=== PATIENT | female | born 1940 | race Caucasian/White ===

== ENCOUNTER 2016-12-06 13:05 | Outpatient (CLI) | payer BC | END 2016-12-06 23:59 | disposition home or self-care (01) | LOC: WOU 13:05 | PROVIDERS: ATTEND Podiatrist Foot & Ankle Surgery | DX: M21.372 Foot drop, left foot (principal); B35.1 Tinea unguium; M21.542 Acquired clubfoot, left foot; I69.954 Hemiplegia and hemiparesis following unspecified cerebrovascular disease affecting left non-dominant side; Z96.649 Presence of unspecified artificial hip joint; B35.3 Tinea pedis; Z99.3 Dependence on wheelchair; G62.9 Polyneuropathy, unspecified | CPT/HCPCS: G0463 ==

== ENCOUNTER 2019-07-01 16:25 | Inpatient (IN) | payer BC, MEDICARE ==
[~2019-07-01] VITALS: Ht 160 cm; Wt 90.3 kg
--- NOTE | 2019-07-01 16:26 | NUR ---
PT BIB [facility] 89 FROM HOME,WEAK, UNABLE TO GET UP WITH HELP FROM CAREGIVER,TOLD EMS THAT SHE COULD NOT EXPRESS HERSELF THIS MORNING. PT AAOX4, STRONG BILATERAL SUPERVISOR ASSEMBLING, ABLE TO FOLLOW COMMANDS, NO FACIAL DROOPING NOTED. PT CONNECTED TO THE MONITOR AND PX
[2019-07-01 17:29] LABS: BASOPHILS # (AUTO) 0.1 /CMM (0.0-0.2); BASOPHILS % (AUTO) 1.1 % (0.0-2.0); EOSINOPHILS % (AUTO) 0.4 % (0.0-6.0); HEMATOCRIT 32 % (33-45); HEMOGLOBIN 10.3 g/dL (11.5-14.8); LYMPHOCYTES # (AUTO) 0.4 /CMM (0.8-4.8); LYMPHOCYTES % (AUTO) 4.7 % (20.0-44.0); MEAN CORPUSCULAR HGB CONC 33 g/dl (31.0-36.0); MEAN CORPUSCULAR VOLUME 82 fL (82-100); MONOCYTES # (AUTO) 0.7 /CMM (0.1-1.30); MONOCYTES % (AUTO) 7.9 % (2.0-12.0); NEUTROPHILS # (AUTO) 7.6 /CMM (1.8-8.9); NEUTROPHILS % (AUTO) 85.9 % (43.0-81.0); PLATELET COUNT (AUTO) 324 /CMM (150-450); RED BLOOD CELL COUNT(AUTO) 3.86 MIL/uL (4.0-5.2); WHITE BLOOD COUNT (AUTO) 8.8 K/uL (4.3-11.0)
[2019-07-01] MEDS ORDERED: IV NS 0.9% 500 ML BAG IV ONE (17:30)
--- NOTE | 2019-07-01 17:30 | NUR ---
BLOOD DRAWN AND SENT TO LAB
--- NOTE | 2019-07-01 17:35 | NUR ---
XRAY AT BEDSIDE
[2019-07-01 17:38] LABS: CALCIUM, SERUM 9.1 mg/dL (8.5-10.1); CREATININE 0.9 mg/dL (0.6-1.3); POTASSIUM 4.3 mmol/L (3.5-5.1)
--- NOTE | 2019-07-01 17:43 | NUR ---
PT TAKEN TO CT
[2019-07-01 17:44] LABS: ALBUMIN 2.9 g/dL (3.4-5.0); BILIRUBIN,TOTAL 0.4 mg/dL (0.2-1.0)
--- NOTE | 2019-07-01 17:45 | NUR ---
Sharon mathis in [facility] - 07/01/19 at 1754 by EDWINA XRAY AT BEDSIDE
[2019-07-01 17:49] LABS: APPEARANCE,URINE Clear (CLEAR); BILIRUBIN,URINE Negative (NEGATIVE); BLOOD, URINE Large Ery/uL (NEGATIVE); COLOR,URINE Yellow (YELLOW); KETONES,URINE 15 (NEGATIVE); LEUKOCYTE ESTERASE ,URINE Negative (NEGATIVE); NITRITE, URINE Negative (NEGATIVE); PROTEIN,URINE 30 mg/dl (NEGATIVE); UGLUCOSE Negative (NEGATIVE); UROBILINOGEN,URINE 0.2 EU/dL (0.2)
[2019-07-01 17:53] LABS: RBC,URINE 21-50 /HPF (0-2)
--- NOTE | 2019-07-01 17:53 | NUR ---
PT BACK FROM CT
[2019-07-01 17:54] LABS: BACTERIA,URINE Few /HPF (None Seen); SQUAMOUS EPITHELIAL CELL,UR Few /HPF (None Seen); WBC,URINE 0-2 /HPF (0-3)
[2019-07-01] MEDS ORDERED: FLUO30CR11 TP (18:41)
[2019-07-01] MEDS ORDERED: OLME40TA18 PO (18:41)
[2019-07-01] MEDS ORDERED: MUPI22OI7 MC (18:41)
[2019-07-01] MEDS ORDERED: POTA10CA43 PO (18:41)
[2019-07-01] MEDS ORDERED: FURO20TA4 PO (18:41)
--- NOTE | 2019-07-01 18:49 | NUR ---
CALLED NURSING SUP FOR BED
[2019-07-01] MEDS ORDERED: VANCOMYCIN 1 GM VIAL ONE (18:59)
[2019-07-01] MEDS ORDERED: VANCOMYCIN 1 GM in IV D5W 250 ML IV ONE (19:00)
[2019-07-01] MEDS ORDERED: ACETAMINOPHEN 325 MG TABLET PO PRN (20:00)
[2019-07-01] MEDS ORDERED: FEE PK DOSING 1 MIN EA MC ONE (20:40)
[2019-07-01] MEDS ORDERED: hydrALAZINE HCL IV 20 MG VIAL ONE (20:58)
[2019-07-01] MEDS ORDERED: hydrALAZINE HCL IV 20 MG VIAL IV PRN (21:00)
[2019-07-01 21:28] VITALS: BP 138/66
--- NOTE | 2019-07-01 21:33 | NUR ---
PT TRANSFERRED IN STABLE CONDITION REPORT GIVEN TO EMERY DUGAN
--- NOTE | 2019-07-01 21:35 | NUR ---
TELE/RN ADMITTING NOTES: RECEIVED REPORT FROM [facility] ED RN. PATIENT ARRIVED TO THE UNIT AT 2127 IN STABLE CONDITION VIA GURNEY, ACCOMPANIED BY ER STAFF UNDER ACLS PROTOCOL. CAREGIVER VILLA PRESENT AT BED SIDE. PATIENT IS A/OX4, VERBALLY RESPONSIVE AND ABLE TO MAKE NEEDS KNOWN. NO SOB NOTTED, NO S/S OF DISTRESS. NO COMPLAINS OF PAIN AT THIS TIME. ORIENTED TO STAFF AND UNIT. VITAL SIGNS TAKEN, WNL. BELONGINGS LIST CHECKED. ON TELE MONITORING WITH READING OF SR WITH HR ON THE 80S. IV SITE PRESENT ON THE LEFT AC #18G AMD RIGHT WRIST #20G. SKIN ASSESSMENT DONE; BRUISES ON THE RIGHT AND LEFT TRICEPS PRESENT; BRUISES ON THE UNDERARM AND LEFT GLUTEAL PRESENT; BUMP PRESENT ON THE LEFT GLUTEAL REGION; CELLULITIS PRESENT ON THE RIGHT AND LEFT LOWER EXTREMITIES. PHOTOS TAKEN AND DOCUMENTED ON THE CHART. SAFETY MEASURES INITIATED. BED IS IN LOW, LOCKED POSITION AND SR UP X2. ALL PATIENT NEEDS AND CONCERNS ATTENDED AT THIS TIME. WILL CONTINUE MONITORING PT ACCORDINGLY.
[2019-07-01 22:00] VITALS: BP 128/70
[2019-07-01] MEDS ORDERED: LEVOFLOXACIN 500 MG /D5W 100ML 100 ML IV ONE (22:02)
[2019-07-01] MEDS: ATORVASTATIN 40 MG TABLET PO SCH (22:26)
[2019-07-01] MEDS: LEVOFLOXACIN 500 MG /D5W 100ML 500 MG in PREMIX 1 EA IV SCH (22:26)
[2019-07-01] MEDS: FUROSEMIDE 20 MG/2 ML VIAL IV SCH (22:26)
[2019-07-02] VITALS: BP 125/65
[2019-07-02 04:00] VITALS: BP 130/62
--- NOTE | 2019-07-02 06:36 | NUR ---
TELE/RN CLOSING NOTES: PATIENT IS IN STABLE CONDITION. RESTING IN BED COMFORTABLY. REMAINS A/OX4. VERBALLY RESPONSIVE AND ABLE TO MAKE NEEDS KNOWN. ALL DUE MEDS GIVEN ORDERED. ALL NEEDS ATTENDED AND MET. IV ACCESS ON THE LEFT AC #18G INTACT AND PATENT. ON ROOM AIR, NO SOB NOTED, NO S/S OF ACUTE DISTRESS. NO COMPLAINS OF PAIN AT THIS TIME. TELE MONITORING WITH READING OF SR HR ON THE 90S. SAFETY MEASURES KEPT IN PLACE. BED IN LOW, LOCKED POSITION WITH SR UP X2. KEPT PT CLEAN AND DRY AT ALL TIMES. KEPT PT WARM AND COMFORTABLE THROUGHOUT THE SHIFT. WILL ENDORSE TO DAY SHIFT NURSE FOR BLANCA.
[2019-07-02 07:16] LABS: BASOPHILS # (AUTO) 0.1 /CMM (0.0-0.2); EOSINOPHILS % (AUTO) 0.3 % (0.0-6.0); HEMATOCRIT 27 % (33-45); HEMOGLOBIN 8.9 g/dL (11.5-14.8); LYMPHOCYTES # (AUTO) 0.6 /CMM (0.8-4.8); LYMPHOCYTES % (AUTO) 8.4 % (20.0-44.0); MEAN CORPUSCULAR HGB CONC 33 g/dl (31.0-36.0); MEAN CORPUSCULAR VOLUME 81 fL (82-100); MONOCYTES # (AUTO) 1.1 /CMM (0.1-1.30); MONOCYTES % (AUTO) 16.1 % (2.0-12.0); NEUTROPHILS # (AUTO) 4.9 /CMM (1.8-8.9); NEUTROPHILS % (AUTO) 74.2 % (43.0-81.0); PLATELET COUNT (AUTO) 283 /CMM (150-450); RED BLOOD CELL COUNT(AUTO) 3.39 MIL/uL (4.0-5.2); WHITE BLOOD COUNT (AUTO) 6.6 K/uL (4.3-11.0)
[2019-07-02 07:46] LABS: ALBUMIN 2.5 g/dL (3.4-5.0); BILIRUBIN,TOTAL 0.4 mg/dL (0.2-1.0); CALCIUM, SERUM 8.7 mg/dL (8.5-10.1); POTASSIUM 3.1 mmol/L (3.5-5.1)
[2019-07-02 07:52] LABS: THYROID STIMULATING HORMONE 1.229 uIU/mL (0.358-3.74)
[2019-07-02 08:00] VITALS: BP 137/60
--- NOTE | 2019-07-02 08:15 | NUR ---
ms rn received on bed, awake,alert,oriented x 4,not in any form of distress, respirations even and unlabored,no sob noted,denies pain at this time,all needs attended..
--- NOTE | 2019-07-02 09:19 | NUR ---
WOUND CARE CONSULT: PT PRESENTS WITH AREAS OF BRUISING/DISCOLORATION AND BILATERAL LOWER LEG REDNESS, EDEMA AND CRUSTED AREAS WITH MILD ODOR, NO DRAINAGE, PRESENT ON ADMISSION. RECOMMEND DPM CONSULT. DR DIANE ARITA CALLED AND LEFT. DISCUSSED SKIN PROTECTION WITH NURSING STAFF. PT IS INCONTINENT. WILL SEE PRN. Addendum: 07/02/19 at 09 by SRINI OROZCOU Amended: Links added. Addendum: 07/02/19 at 0929 by SRINI OROZCOU DPM CONSULT MADE PER DR ARITA. DR FISHER NOTIFIED OF DPM CONSULT REQUEST.
[2019-07-02] MEDS ORDERED: Z GUARD REMEDY 2 OZ OINT TP PRN (09:30)
--- NOTE | 2019-07-02 09:30 | NUR ---
ms rn due meds given,tolerated well.
[2019-07-02] MEDS: ASPIRIN 81 MG TAB.CHEW PO SCH (09:45)
[2019-07-02] MEDS: FUROSEMIDE 20 MG/2 ML VIAL IV SCH (09:45)
[2019-07-02] MEDS: PANTOPRAZOLE 40 MG TABLET.DR PO SCH (09:45)
[2019-07-02] MEDS: VANCOMYCIN 1 GM in IV D5W 250ml IV SCH ×2 (09:45→20:07)
[2019-07-02] MEDS: ENOXAPARIN SODIUM 40 MG/0.4 ML DISP.SYRIN SQ SCH (09:47)
[2019-07-02 10:26] LABS: BAND % (MANUAL) 1 % (0.0-5.0); NEUTROPHILS % (MANUAL) 78 (42-76)
[2019-07-02 10:27] LABS: LYMPHOCYTES % (MANUAL) 9 % (16-48); MONOCYTES % (MANUAL) 12 % (0-11.0)
[2019-07-02] MEDS: ENSURE ENLIVE CHOC 237 ML CAN PO SCH ×2 (10:30→17:00)
--- NOTE | 2019-07-02 11:00 | NUR ---
ms rn went down for mri.
--- NOTE | 2019-07-02 11:00 | NUR ---
ms rn came back , patient cannot tolerate mri, will do it again this pm.
[2019-07-02] MEDS: MULTIVITAMINS,THERAGRAN 1 UDTAB TABLET PO SCH (11:03)
[2019-07-02] MEDS: ASCORBIC ACID 500 MG TABLET PO SCH (11:03)
[2019-07-02] MEDS: ZINC SULFATE 220 MG CAPSULE PO SCH (11:03)
[2019-07-02] MEDS: POTASSIUM CHLORIDE 20 MEQ TAB.PRT.SR PO SCH ×2 (11:03→17:50)
--- NOTE | 2019-07-02 14:19 | NUR ---
Social service consult requested by Dr. Pabon for stroke protocol. Per chart review and MD notes, The patient is a 79-year-old female who is disabled and walks with a walker. Pt has history of severe osteoarthritis, and hypertension. UNDERCOATER met with pt bedside. Pt is alert and oriented x 4. Pt is pleasant and cooperative with UNDERCOATER during the assessment. Pt reports, she lives alone. Pt is single and has no children. Pt does not have an Advance Directive at this time. Pt's emergency contact is her friend Rosi Carranza . Pt reported, she has three different caregivers on different days. Per pt. the caregivers provide up to 3 to 4 hrs per day of care. Pt uses a walker to ambulate. Pt stated, she had trouble sleeping last night due to her roommate coughing for most part of the night. Pt reports to have a poor appetite due to feeling nauseous. Pt denies feeling depressed or anxious at this time. Pt denies current suicidal and homicidal ideations and visual/auditory hallucinations. UNDERCOATER provided active listening and supportive counseling to the pt. UNDERCOATER is available, if needed. Addendum: 07/02/19 at 1428 by JULITO TRUJILLO PHQ-9 assessment completed by SINGH.
--- NOTE | 2019-07-02 15:00 | NUR ---
ms rn loom technician came to bring pt to mri, but patient refused,will do it in am, charge nurse aware.
[2019-07-02] MEDS: ONDANSETRON HCL/PF 4 MG/2 ML VIAL IV PRN (15:35)
[2019-07-02] MEDS: Z GUARD REMEDY 2 OZ OINT TP SCH (15:42)
[2019-07-02 16:00] VITALS: BP 130/70
[2019-07-02] MEDS: MUPIROCIN OINT 2% 22 GM TUBE TP SCH (17:49)
--- NOTE | 2019-07-02 18:44 | NUR ---
ms rn on bed, dressing done on bilateral legs, all needs attended,no distress noted.
--- NOTE | 2019-07-02 19:37 | NUR ---
TELE/RN OPENING NOTES: PATIENT IN STABLE CONDITION, A/OX4, VERBALLY RESPONSIVE AND ABLE TO MAKE NEEDS KNOWN. CAREGIVER VILLA, AT BEDSIDE. NO SOB NOTED, NO S/S OF DISTRESS. NO COMPLAINS OF PAIN AT THIS TIME. IV SITE PRESENT ON THE LEFT FOREARM; SKIN ASSESSMENT DONE; BRUISES ON THE RIGHT AND LEFT TRICEPS PRESENT; BRUISES ON THE UNDERARM AND LEFT GLUTEAL PRESENT; BUMP PRESENT ON THE LEFT GLUTEAL REGION; CELLULITIS PRESENT ON THE RIGHT AND LEFT LOWER EXTREMITIES. SAFETY MEASURES INITIATED. BED IS IN LOW, LOCKED POSITION AND SR UP X2. ALL PATIENT NEEDS AND CONCERNS ATTENDED AT THIS TIME. WILL CONTINUE MONITORING PT ACCORDINGLY.
[2019-07-02 20:00] VITALS: BP 144/74
[2019-07-02 21:00] VITALS: BP 144/74
[2019-07-02] MEDS: LEVOFLOXACIN 500 MG /D5W 100ML 500 MG in PREMIX 1 EA IV SCH (21:21)
[2019-07-02] MEDS: ATORVASTATIN 40 MG TABLET PO SCH (21:23)
[2019-07-03] MEDS: MUPIROCIN OINT 2% 22 GM TUBE TP SCH ×2 (04:15→17:41)
--- NOTE | 2019-07-03 06:17 | NUR ---
MS/RN CLOSING NOTES: PATIENT IS RESTING IN BED COMFORTABLY. REMAINS A/OX4. VERBALLY RESPONSIVE AND ABLE TO MAKE NEEDS KNOWN. ALL DUE MEDS GIVEN ORDERED. ALL NEEDS ATTENDED AND MET. IV ACCESS ON THE LEFT FOREARM #22G INTACT AND PATENT. ON ROOM AIR, NO SOB NOTED, NO S/S OF ACUTE DISTRESS. NO COMPLAINS OF PAIN AT THIS TIME. SAFETY MEASURES KEPT IN PLACE. BED IN LOW, LOCKED POSITION WITH SR UP X2. KEPT PT CLEAN AND DRY AT ALL TIMES. KEPT PT WARM AND COMFORTABLE THROUGHOUT THE SHIFT. WILL ENDORSE TO DAY SHIFT NURSE FOR BLANCA.
[2019-07-03 06:42] LABS: CALCIUM, SERUM 8.5 mg/dL (8.5-10.1); POTASSIUM 3.3 mmol/L (3.5-5.1)
[2019-07-03 06:44] LABS: BASOPHILS # (AUTO) 0.1 /CMM (0.0-0.2); BASOPHILS % (AUTO) 1.3 % (0.0-2.0); EOSINOPHILS % (AUTO) 0.5 % (0.0-6.0); HEMATOCRIT 29 % (33-45); HEMOGLOBIN 9.6 g/dL (11.5-14.8); LYMPHOCYTES # (AUTO) 0.4 /CMM (0.8-4.8); LYMPHOCYTES % (AUTO) 6.9 % (20.0-44.0); MEAN CORPUSCULAR HGB CONC 33 g/dl (31.0-36.0); MEAN CORPUSCULAR VOLUME 81 fL (82-100); MONOCYTES # (AUTO) 0.8 /CMM (0.1-1.30); MONOCYTES % (AUTO) 14.1 % (2.0-12.0); NEUTROPHILS # (AUTO) 4.4 /CMM (1.8-8.9); NEUTROPHILS % (AUTO) 77.2 % (43.0-81.0); PLATELET COUNT (AUTO) 288 /CMM (150-450); RED BLOOD CELL COUNT(AUTO) 3.57 MIL/uL (4.0-5.2); WHITE BLOOD COUNT (AUTO) 5.7 K/uL (4.3-11.0)
[2019-07-03 08:00] VITALS: BP 160/80
[2019-07-03] MEDS: ENSURE ENLIVE CHOC 237 ML CAN PO SCH ×2 (08:00→17:44)
--- NOTE | 2019-07-03 08:15 | NUR ---
ms rn received on bed, awake,alert,oriented x 4,not in any form of distress, noted to have bilateral lower legs wounds,dressing dry and intact, denies pain at this time,all needs attended.
--- NOTE | 2019-07-03 08:20 | NUR ---
ms rn received on bed, awake,alert,oriented x4,not in any form of distress, respirations even and unlabored,no sob noted, lung are diminish, abdomen soft, positive bowel sounds,denies pain at this time,all needs attended.
--- NOTE | 2019-07-03 08:31 | NUR ---
AQUATIC PERFORMER TREATMENT ORDERS CLARIFIED WITH DPM. SEE ORDERS FOR TODAY. PRIMARY NURSE NOTIFIED OF ORDER CHANGES.
--- NOTE | 2019-07-03 09:00 | NUR ---
ms rn due meds held, patient is down for mri, will give it later, when she comes back
[2019-07-03] MEDS: ONDANSETRON HCL/PF 4 MG/2 ML VIAL IV PRN (09:42)
--- NOTE | 2019-07-03 10:50 | NUR ---
ms rn patient came back from mri.was not able to tolerate procedure,due meds given.
--- NOTE | 2019-07-03 11:00 | NUR ---
ms rn was seen by dr. pro, made aware that mri was not done, cant tolerate it.
[2019-07-03] MEDS: ASCORBIC ACID 500 MG TABLET PO SCH (11:12)
[2019-07-03] MEDS: MULTIVITAMINS,THERAGRAN 1 UDTAB TABLET PO SCH (11:12)
[2019-07-03] MEDS: ASPIRIN 81 MG TAB.CHEW PO SCH (11:12)
[2019-07-03] MEDS: ZINC SULFATE 220 MG CAPSULE PO SCH (11:12)
[2019-07-03] MEDS: FUROSEMIDE 20 MG/2 ML VIAL IV SCH (11:12)
[2019-07-03] MEDS: PANTOPRAZOLE 40 MG TABLET.DR PO SCH (11:12)
[2019-07-03] MEDS: POTASSIUM CHLORIDE 20 MEQ TAB.PRT.SR PO SCH ×2 (11:12→17:43)
[2019-07-03] MEDS: VANCOMYCIN 1 GM in IV D5W 250ml IV SCH (11:13)
[2019-07-03] MEDS: ENOXAPARIN SODIUM 40 MG/0.4 ML DISP.SYRIN SQ SCH (11:15)
[2019-07-03] MEDS: AMLODIPINE BESYLATE 2.5 MG TABLET PO SCH (14:35)
[2019-07-03 16:00] VITALS: BP 141/76
[2019-07-03] MEDS: GENTAMICIN 0.1% OINT 15 GM TUBE TP SCH (17:41)
[2019-07-03] MEDS: DAKINS QUARTER STRENGTH (0.125%) 480 ML BOTTLE TOP SCH (17:41)
[2019-07-03] MEDS: FERROUS SULFATE (325 MG) 325 MG/TAB TABLET PO SCH (17:43)
[2019-07-03] MEDS: Z GUARD REMEDY 2 OZ OINT TP SCH (17:43)
--- NOTE | 2019-07-03 18:00 | NUR ---
ms rn on bed, no distress noted,all needs attended.
--- NOTE | 2019-07-03 19:45 | NUR ---
MS RN NOTES PATIENT RESTING IN BED COMFORTABLY; A/O X2; KOREAN SPEAKER; BREATHING EVEN AND UNLABORED; NO S/S OF ACUTE RESPIRATORY DISTRESS NOTED; SON AT BEDSIDE; BEAR HUGGER AT BEDSIDE; MULTIPLE BUE ABRASIONS NOTED; BILAT HANDS WOUNDS NOTED; L UA #18 RUNNING NS @ 80ML/HR; IV SITE FLUSHING WELL; NO S/S OF REDNESS OR INFILTRATION; BED LOCKED IN LOW POSITION; SAFETY PRECAUTIONS IN PLACE; BILATERAL UPPER SIDE RAILS X2; CALL LIGHT WITHIN REACH; WILL CONTINUE TO MONITOR Addendum: 07/03/19 at 2124 by LUIS MIGUEL ARCHER RN ENTRY ERROR
--- NOTE | 2019-07-03 19:48 | NUR ---
MS RN OPENING NOTES PATIENT AWAKE, A/O X4; FRIEND AT BEDSIDE; PATIENT DENIES PAIN; BREATHING EVEN AND UNLABORED; NO S/S OF ACUTE RESPIRATORY DISTRESS NOTED; PATIENT TOLERATING ROOM AIR WELL; L AC #18 SL; INTACT AND PATENT; FLUSHING WELL; NO S/S OF INFILTRATION NOTED; BED LOCKED IN LOW POSITION; BILATERAL UPPER SIDE RAILS X2; SAFETY PRECAUTIONS IN PLACE; CALL LIGHT WITHIN REACH; WILL CONTINUE TO MONITOR
[2019-07-03 20:00] VITALS: BP 150/80
[2019-07-03] MEDS: LEVOFLOXACIN 500 MG /D5W 100ML 500 MG in PREMIX 1 EA IV SCH (20:11)
[2019-07-03] MEDS ORDERED: VANCOMYCIN 1 GM in IV D5W 250ml IV SCH (21:00)
[2019-07-03] MEDS: ATORVASTATIN 40 MG TABLET PO SCH (21:43)
--- NOTE | 2019-07-03 22:02 | NUR ---
MS RN NOTES L AC #18 SL INFILTRATED; IV REMOVED; IV TIP INSPECTED AND INTACT; NO S/S OF BLEEDING. RAPHAEL MIDLINE INSERTED; FLUSHING WELL; NO S/S OF REDNESS OR INFILTRATION; WILL CONTINUE TO MONITOR.
[2019-07-04] MEDS: MUPIROCIN OINT 2% 22 GM TUBE TP SCH (04:08)
--- NOTE | 2019-07-04 06:22 | NUR ---
MS RN CLOSING NOTES PATIENT AWAKE, A/O X4; PATIENT REPORTED TO BE WELL RESTED; PATIENT DENIES PAIN; BREATHING EVEN AND UNLABORED; NO S/S OF ACUTE RESPIRATORY DISTRESS NOTED; PATIENT TOLERATING ROOM AIR WELL; ALL NEEDS ATTENDED TO; WOUND CARE DONE; RAPHAEL MIDLINE IV INTACT AND PATENT; NO S/S OF REDNESS OR INFILTRATION; FLUSHING WELL; SAFETY PRECAUTIONS IN PLACE; BED LOCKED IN LOW POSITION; BILATERAL UPPER SIDE RAILS X2; CALL LIGHT WITHIN REACH; WILL ENDORSE CONTINUITY OF CARE TO ONCOMING SHIFT.
[2019-07-04 06:54] LABS: CALCIUM, SERUM 8.6 mg/dL (8.5-10.1); CREATININE 1.1 mg/dL (0.6-1.3); POTASSIUM 3.7 mmol/L (3.5-5.1)
--- NOTE | 2019-07-04 07:23 | NUR ---
MS RN OPENING NOTES RECEIVED PT IN BED, ASLEEP, EASILY AROUSED, A/O X4. PT TOLERATING RA, WITH NO ACUTE RESPIRATORY DISTRESS NOTED. PT DENIES ANY PAIN OR DISCOMFORT AT THIS TIME. PT ALSO DENIES, CONCERNS OR QUESTIONS AT THIS TIME. PIV RAPHAEL MIDLINE FLUSHED WITH NS, INTACT AND OPERATIONAL. PT KEPT COMFORTABLE IN BED. CALL LIGHT KEPT WITHIN REACH. PT'S BED IN LOWEST, LOCKED POSITION WITH SR X3. WILL CONTINUE TO MONITOR.
[2019-07-04] MEDS: ASCORBIC ACID 500 MG TABLET PO SCH (08:41)
[2019-07-04] MEDS: ENSURE ENLIVE CHOC 237 ML CAN PO SCH (08:41)
[2019-07-04] MEDS: ZINC SULFATE 220 MG CAPSULE PO SCH (08:42)
[2019-07-04] MEDS: AMLODIPINE BESYLATE 2.5 MG TABLET PO SCH (08:42)
[2019-07-04] MEDS: FERROUS SULFATE (325 MG) 325 MG/TAB TABLET PO SCH (08:42)
[2019-07-04] MEDS: ASPIRIN 81 MG TAB.CHEW PO SCH (08:42)
[2019-07-04] MEDS: MULTIVITAMINS,THERAGRAN 1 UDTAB TABLET PO SCH (08:42)
[2019-07-04] MEDS: POTASSIUM CHLORIDE 20 MEQ TAB.PRT.SR PO SCH (08:42)
[2019-07-04] MEDS: PANTOPRAZOLE 40 MG TABLET.DR PO SCH (08:42)
[2019-07-04] MEDS: FUROSEMIDE 20 MG/2 ML VIAL IV SCH (08:43)
[2019-07-04] MEDS: ENOXAPARIN SODIUM 40 MG/0.4 ML DISP.SYRIN SQ SCH (08:44)
[2019-07-04] MEDS: DAKINS QUARTER STRENGTH (0.125%) 480 ML BOTTLE TOP SCH (09:08)
[2019-07-04] MEDS: GENTAMICIN 0.1% OINT 15 GM TUBE TP SCH (09:09)
[2019-07-04] MEDS: Z GUARD REMEDY 2 OZ OINT TP SCH (09:09)
[2019-07-04 09:24] VITALS: BP 149/83
--- NOTE | 2019-07-04 16:05 | NUR ---
MS ENTERPRISE APPLICATION ARCHITECT NOTES PT [facility], REPORT GIVEN TO TESSA/RN. PT IN BED, AWAKE, A/O X4. PT TOLERATING RA, WITH NO ACUTE RESPIRATORY DISTRESS NOTED. PT DENIES ANY PAIN OR DISCOMFORT THE TIME OF DISCHARGE. PIV RAPHAEL MIDLINE FLUSHED WITH NS, INTACT AND OPERATIONAL; KEPT FOR CONTINUATION OF IV ANTIBIOTIC. PT REVIEWED AND SIGNED DISCHARGE INSTRUCTIONS AND INVENTORY LIST. SKIN ISSUES TOOK PICTURES AND FILED IN THE CHART. PT HAPPY WITH THE CARE PROVIDED. PT AWARE WITH THE PLAN OF DISCHARGE, DR ARITA EXPLAINED TO PT PLAN OF CARE WELL. PT HAS STABLE VITALS. [employer] TO TRANSPORT PT VIA GURNEY IN A N AMBULANCE. PT LEFT AT THE UNIT AT 1600. CN/JR AND HOSPITALIST/DR ARITA AWARE OF DISCHARGE.
[2019-07-04 16:20] VITALS: BP 130/58
== END 2019-07-04 16:00 | DRG 603 ==
LOC: ER 16:28 → TELE 20:32 → MED 07-02 09:16
PROVIDERS: ADMIT Internal Medicine; ATTEND Internal Medicine
PROC: 05H933Z Insertion of Infusion Device into Right Brachial Vein, Percutaneous Approach (ICD-10-PCS; principal; 2019-07-03)
DX: L03.115 Cellulitis of right lower limb (principal); G45.9 Transient cerebral ischemic attack, unspecified; E44.1 Mild protein-calorie malnutrition; I50.30 Unspecified diastolic (congestive) heart failure; R47.01 Aphasia; L03.116 Cellulitis of left lower limb; D64.9 Anemia, unspecified; I87.8 Other specified disorders of veins; B35.1 Tinea unguium; M19.90 Unspecified osteoarthritis, unspecified site; R53.81 Other malaise; R53.1 Weakness; Z88.0 Allergy status to penicillin; Z88.2 Allergy status to sulfonamides; I27.20 Pulmonary hypertension, unspecified; I11.0 Hypertensive heart disease with heart failure; Z68.35 Body mass index [BMI] 35.0-35.9, adult; D50.9 Iron deficiency anemia, unspecified; M75.102 Unspecified rotator cuff tear or rupture of left shoulder, not specified as traumatic; E78.5 Hyperlipidemia, unspecified; Z96.641 Presence of right artificial hip joint
CPT/HCPCS: 36410; 36415; 70450-TC; 71045-TC; 73030-TC; 80048-TC; 80053-TC; 80061-TC; 80076-TC; 80202-TC; 81000-TC; 83540-TC; 83605-TC; 84443-TC; 84484-TC; 85025-TC; 85045-TC; 85730-TC; 87040-TC; 87081-TC; 87086-TC; 92611-TC; 93307-TC; 93880-TC; 93970-TC; 97112-TC; 97116-TC; 97530-TC; A4216; A6403; G0378; J0360; J1650; J1940; J1956; J2405; J3370; J7040; J7050; J7060

== ENCOUNTER 2023-12-26 15:50 | Inpatient (IN) | payer BC ==
[~2023-12-26] VITALS: Ht 233.7 cm; Wt 69.9 kg
[~2023-12-26 15:50] MED LIST: MUPI22OI7 MC; OLME40TA18 PO; POTA10CA43 PO
[2023-12-26 16:19] LABS: BASOPHILS # (AUTO) 0.1 K/uL (0.0-0.2); BASOPHILS % (AUTO) 0.5 % (0.0-2.0); HEMATOCRIT 42 % (33-45); HEMOGLOBIN 13.8 g/dL (11.5-14.8); LYMPHOCYTES # (AUTO) 0.1 K/uL (0.8-4.8); LYMPHOCYTES % (AUTO) 0.9 % (20.0-44.0); MEAN CORPUSCULAR HEMOGLOBIN 28 PG (26.0-33.0); MEAN CORPUSCULAR HGB CONC 33 g/dl (31.0-36.0); MEAN CORPUSCULAR VOLUME 86 fL (82-100); MONOCYTES # (AUTO) 0.7 K/uL (0.1-1.30); MONOCYTES % (AUTO) 4.7 % (2.0-12.0); NEUTROPHILS # (AUTO) 13.9 K/uL (1.8-8.9); NEUTROPHILS % (AUTO) 93.9 % (43.0-81.0); PLATELET COUNT (AUTO) 189 K/uL (150-450); RED BLOOD CELL COUNT(AUTO) 4.89 MIL/uL (4.0-5.2); RED CELL DISTRIBUTION WIDTH 14.9 % (11.5-15.0); WHITE BLOOD COUNT (AUTO) 14.8 K/uL (4.3-11.0)
[2023-12-26 16:26] LABS: CALCIUM, SERUM 8.9 mg/dL (8.5-10.1); CARBON DIOXIDE 19 mmol/L (21-32); CHLORIDE 105 mmol/L (98-107); CREATININE 1.5 mg/dL (0.6-1.3); GLUCOSE 154 mg/dL (74-106); POTASSIUM 3.6 mmol/L (3.5-5.1); SODIUM SERUM 138 mmol/L (136-145); UREA NITROGEN, BLOOD 37 mg/dL (7-18)
[2023-12-26 16:31] LABS: INR 1.32 (0.91-1.10); PARTIAL THROMBOPLASTIN TIME 27.6 SEC (24.3-34.3); PROTHROMBIN TIME 13.4 SECS (9.2-11.1)
[2023-12-26 16:33] LABS: ALANINE AMINOTRANSFERASE 69 U/L (12-78); ALBUMIN 2.9 g/dL (3.4-5.0); ALKALINE PHOSPHATASE 175 U/L (46-116); ASPARTATE AMINOTRANSFERASE 55 U/L (15-37); BILIRUBIN,DIRECT 0.5 mg/dL (0.0-0.2); BILIRUBIN,TOTAL 1.3 mg/dL (0.2-1.0); TOTAL PROTEIN, SERUM 7.1 g/dL (6.4-8.2)
[2023-12-26 16:35] LABS: LACTIC ACID 1.3 mmol/L (0.4-2.0)
[2023-12-26] MEDS: IV NS 0.9% 1,000 ML BAG IV ONE ×2 (16:40→20:30)
[2023-12-26] MEDS ORDERED: ACETAMINOPHEN 325 MG TABLET ONE (16:43)
[2023-12-26 16:46] LABS: APPEARANCE,URINE Cloudy (CLEAR); BILIRUBIN,URINE SMALL (NEGATIVE); BLOOD, URINE Moderate Ery/uL (NEGATIVE); COLOR,URINE DARK YELLOW (YELLOW); KETONES,URINE 40 mg/dL (NEGATIVE); LEUKOCYTE ESTERASE ,URINE Small (NEGATIVE); NITRITE, URINE Negative (NEGATIVE); PH,URINE 5.5 (5.0-8.0); PROTEIN,URINE 100 mg/dl (NEGATIVE); UGLUCOSE Negative (NEGATIVE); UROBILINOGEN,URINE 0.2 EU/dL (0.2)
[2023-12-26] MEDS: ACETAMINOPHEN 325 MG TABLET PO ONE (16:56)
[2023-12-26 17:09] LABS: ADD URINE CULTURE YES; BACTERIA,URINE 4+ /HPF (None Seen); RBC,URINE TOO NUMEROUS TO COUN /HPF (0-2); SQUAMOUS EPITHELIAL CELL,UR Few /HPF (None Seen); WBC,URINE TOO NUMEROUS TO COUN /HPF (0-3)
[2023-12-26] MEDS: MEROPENEM 1,000 MG in IV NS 0.9% 100 ML IV ONE (17:11)
[2023-12-26] MEDS ORDERED: MAG HYDROX/AL HYDROX/SIMETH 30 ML UDC PO PRN (18:00)
[2023-12-26] MEDS ORDERED: ONDANSETRON HCL/PF 4 MG/2 ML VIAL IVP PRN (18:00)
[2023-12-26] MEDS ORDERED: ACETAMINOPHEN 325 MG TABLET PO PRN (18:00)
[2023-12-26] MEDS ORDERED: MAGNESIUM HYDROXIDE 30 ML UDC PO PRN (18:00)
[2023-12-26] MEDS ORDERED: CHOL200059 PO (18:01)
[2023-12-26] MEDS ORDERED: POLY17PO4 PO (18:01)
[2023-12-26] MEDS ORDERED: CHLO4TAB36 PO (18:01)
[2023-12-26] MEDS ORDERED: IBUP-23 PO (18:01)
[2023-12-26] MEDS ORDERED: ATOR20TA PO (18:01)
[2023-12-26] MEDS ORDERED: SODI88SP18 BNOSTRILS (18:01)
[2023-12-26] MEDS ORDERED: FAMO-131 PO (18:01)
[2023-12-26] MEDS ORDERED: DOCU-141 PO (18:01)
[2023-12-26] MEDS ORDERED: IBUPROFEN 200 MG TABLET PO PRN (18:30)
[2023-12-26] MEDS ORDERED: LEVOFLOXACIN 500 MG /D5W 100ML 100 ML IV ONE (20:37)
[2023-12-26] MEDS: LEVOFLOXACIN 500 MG /D5W 100ML 500 MG in PREMIX 1 EA IV SCH (20:46)
[2023-12-26] MEDS: ENOXAPARIN SODIUM 30 MG/0.3 ML DISP.SYRIN SQ SCH (22:17)
[2023-12-26] MEDS: IV NS 0.9% 1,000 ML IV PRN (22:36)
[2023-12-27] MEDS ORDERED: IV NS 0.9% 1,000 ML BAG IV ONE (03:00)
[2023-12-27 04:00] VITALS: BP 138/70; TEMP 97.5; O2SAT 95
[2023-12-27] MEDS: MEROPENEM 500 MG in IV NS 0.9% 50 ML IV SCH (04:41)
[2023-12-27 06:41] LABS: BASOPHILS % (AUTO) 0.3 % (0.0-2.0); EOSINOPHILS % (AUTO) 0.1 % (0.0-6.0); HEMATOCRIT 34 % (33-45); HEMOGLOBIN 11.2 g/dL (11.5-14.8); LYMPHOCYTES # (AUTO) 0.6 K/uL (0.8-4.8); LYMPHOCYTES % (AUTO) 3.3 % (20.0-44.0); MEAN CORPUSCULAR HEMOGLOBIN 29 PG (26.0-33.0); MEAN CORPUSCULAR HGB CONC 33 g/dl (31.0-36.0); MEAN CORPUSCULAR VOLUME 86 fL (82-100); MONOCYTES # (AUTO) 1.8 K/uL (0.1-1.30); MONOCYTES % (AUTO) 9.9 % (2.0-12.0); NEUTROPHILS # (AUTO) 15.6 K/uL (1.8-8.9); NEUTROPHILS % (AUTO) 86.4 % (43.0-81.0); PLATELET COUNT (AUTO) 165 K/uL (150-450); RED BLOOD CELL COUNT(AUTO) 3.91 MIL/uL (4.0-5.2); RED CELL DISTRIBUTION WIDTH 15.1 % (11.5-15.0)
[2023-12-27 07:07] LABS: CALCIUM, SERUM 7.6 mg/dL (8.5-10.1); CARBON DIOXIDE 20 mmol/L (21-32); CHLORIDE 109 mmol/L (98-107); CREATININE 1.1 mg/dL (0.6-1.3); GLUCOSE 93 mg/dL (74-106); POTASSIUM 3.8 mmol/L (3.5-5.1); SODIUM SERUM 142 mmol/L (136-145)
[2023-12-27 08:49] LABS: UREA NITROGEN, BLOOD 38 mg/dL (7-18)
[2023-12-27] MEDS: DOCUSATE SODIUM 100 MG CAPSULE PO SCH (11:20)
[2023-12-27] MEDS: POLYETHYLENE GLYCOL 3350 17 GM POWD.PACK PO SCH (11:21)
[2023-12-27] MEDS: FAMOTIDINE (20 MG) 20 MG TABLET PO SCH (11:21)
[2023-12-27 12:00] VITALS: BP 140/78; TEMP 98.3; O2SAT 98
[2023-12-27 15:19] VITALS: O2SAT 99
[2023-12-27 16:00] VITALS: BP 136/73; TEMP 98.5; O2SAT 98
[2023-12-27] MEDS: Z GUARD REMEDY 4 OZ OINT TP PRN (16:59)
[2023-12-27 20:00] VITALS: BP 149/82; TEMP 98.6; O2SAT 99
[2023-12-28] VITALS: BP 142/87; TEMP 98.6; O2SAT 99
[2023-12-28 04:00] VITALS: BP 142/87; TEMP 98.6; O2SAT 99
[2023-12-28 06:45] LABS: BASOPHILS # (AUTO) 0.1 K/uL (0.0-0.2); BASOPHILS % (AUTO) 0.6 % (0.0-2.0); EOSINOPHILS # (AUTO) 0.1 K/uL (0.0-0.7); EOSINOPHILS % (AUTO) 0.9 % (0.0-6.0); HEMATOCRIT 37 % (33-45); HEMOGLOBIN 12.1 g/dL (11.5-14.8); LYMPHOCYTES # (AUTO) 0.2 K/uL (0.8-4.8); LYMPHOCYTES % (AUTO) 2.3 % (20.0-44.0); MEAN CORPUSCULAR HEMOGLOBIN 29 PG (26.0-33.0); MEAN CORPUSCULAR HGB CONC 33 g/dl (31.0-36.0); MEAN CORPUSCULAR VOLUME 87 fL (82-100); MONOCYTES % (AUTO) 9.4 % (2.0-12.0); NEUTROPHILS # (AUTO) 9.4 K/uL (1.8-8.9); NEUTROPHILS % (AUTO) 86.8 % (43.0-81.0); PLATELET COUNT (AUTO) 161 K/uL (150-450); RED BLOOD CELL COUNT(AUTO) 4.22 MIL/uL (4.0-5.2); RED CELL DISTRIBUTION WIDTH 15.1 % (11.5-15.0); WHITE BLOOD COUNT (AUTO) 10.8 K/uL (4.3-11.0)
[2023-12-28] MEDS ORDERED: ANESTHESIA TRAY IN PYXIS 1 EA TRAY MC ONE (06:50)
[2023-12-28] MEDS ORDERED: FENTANYL PF 100MCG/2ML AMPUL ONE (07:18)
[2023-12-28 07:22] LABS: CALCIUM, SERUM 8.5 mg/dL (8.5-10.1); CARBON DIOXIDE 20 mmol/L (21-32); CHLORIDE 108 mmol/L (98-107); CREATININE 1.2 mg/dL (0.6-1.3); GLUCOSE 88 mg/dL (74-106); POTASSIUM 3.8 mmol/L (3.5-5.1); SODIUM SERUM 141 mmol/L (136-145); UREA NITROGEN, BLOOD 36 mg/dL (7-18)
[2023-12-28] MEDS ORDERED: LIDOCAINE 2%-EPI 1:100,000 30 ML VIAL ONE (07:22)
[2023-12-28] MEDS ORDERED: dexaMETHasone SOD PHOSPHATE 1 ML ONE (07:22)
[2023-12-28] MEDS ORDERED: OXYMETAZOLINE HCL NASAL SPRAY 30 ML BOTTLE NS ONE (07:23)
[2023-12-28 12:00] VITALS: BP 142/87; TEMP 98.6; O2SAT 99
[2023-12-28 12:15] VITALS: BP 135/89; TEMP 99; O2SAT 98
[2023-12-28] MEDS: CLONIDINE HCL 0.1 MG TABLET PO PRN (12:34)
[2023-12-28 20:31] VITALS: BP 145/76; TEMP 97.5; O2SAT 98
[2023-12-29] VITALS (8 sets, daily range): BP systolic 138–179; BP diastolic 70–96; TEMP 97.5–98.1; O2SAT 95–100
[2023-12-29 07:15] LABS: BASOPHILS % (AUTO) 0.1 % (0.0-2.0); EOSINOPHILS % (AUTO) 0.2 % (0.0-6.0); HEMATOCRIT 33 % (33-45); LYMPHOCYTES # (AUTO) 0.4 K/uL (0.8-4.8); LYMPHOCYTES % (AUTO) 4.6 % (20.0-44.0); MEAN CORPUSCULAR HEMOGLOBIN 29 PG (26.0-33.0); MEAN CORPUSCULAR HGB CONC 33 g/dl (31.0-36.0); MEAN CORPUSCULAR VOLUME 87 fL (82-100); MONOCYTES # (AUTO) 1.1 K/uL (0.1-1.30); MONOCYTES % (AUTO) 13.8 % (2.0-12.0); NEUTROPHILS # (AUTO) 6.7 K/uL (1.8-8.9); NEUTROPHILS % (AUTO) 81.3 % (43.0-81.0); PLATELET COUNT (AUTO) 162 K/uL (150-450); RED BLOOD CELL COUNT(AUTO) 3.84 MIL/uL (4.0-5.2); RED CELL DISTRIBUTION WIDTH 15.3 % (11.5-15.0); WHITE BLOOD COUNT (AUTO) 8.3 K/uL (4.3-11.0)
[2023-12-29 07:36] LABS: CALCIUM, SERUM 8.1 mg/dL (8.5-10.1); CARBON DIOXIDE 19 mmol/L (21-32); CHLORIDE 113 mmol/L (98-107); GLUCOSE 106 mg/dL (74-106); POTASSIUM 4.1 mmol/L (3.5-5.1); SODIUM SERUM 143 mmol/L (136-145); UREA NITROGEN, BLOOD 37 mg/dL (7-18)
[2023-12-30 04:00] VITALS: BP 172/78; TEMP 97.7; O2SAT 99
[2023-12-30 06:58] LABS: BASOPHILS % (AUTO) 0.6 % (0.0-2.0); EOSINOPHILS # (AUTO) 0.2 K/uL (0.0-0.7); EOSINOPHILS % (AUTO) 2.8 % (0.0-6.0); HEMATOCRIT 33 % (33-45); HEMOGLOBIN 11.1 g/dL (11.5-14.8); LYMPHOCYTES # (AUTO) 0.5 K/uL (0.8-4.8); LYMPHOCYTES % (AUTO) 9.6 % (20.0-44.0); MEAN CORPUSCULAR HEMOGLOBIN 29 PG (26.0-33.0); MEAN CORPUSCULAR HGB CONC 34 g/dl (31.0-36.0); MEAN CORPUSCULAR VOLUME 87 fL (82-100); MONOCYTES # (AUTO) 0.9 K/uL (0.1-1.30); MONOCYTES % (AUTO) 16.7 % (2.0-12.0); NEUTROPHILS # (AUTO) 3.7 K/uL (1.8-8.9); NEUTROPHILS % (AUTO) 70.3 % (43.0-81.0); PLATELET COUNT (AUTO) 164 K/uL (150-450); RED BLOOD CELL COUNT(AUTO) 3.83 MIL/uL (4.0-5.2); RED CELL DISTRIBUTION WIDTH 15.1 % (11.5-15.0); WHITE BLOOD COUNT (AUTO) 5.3 K/uL (4.3-11.0)
[2023-12-30 07:17] LABS: CALCIUM, SERUM 7.7 mg/dL (8.5-10.1); CARBON DIOXIDE 21 mmol/L (21-32); CHLORIDE 113 mmol/L (98-107); CREATININE 0.8 mg/dL (0.6-1.3); GLUCOSE 96 mg/dL (74-106); POTASSIUM 3.8 mmol/L (3.5-5.1); SODIUM SERUM 144 mmol/L (136-145); UREA NITROGEN, BLOOD 32 mg/dL (7-18)
[2023-12-30 08:00] VITALS: BP 160/69; TEMP 97.7; O2SAT 99
[2023-12-30 08:23] LABS: EOSINOPHILS % (MANUAL) 6 % (0-4); LYMPHOCYTES % (MANUAL) 10 % (16-48); MONOCYTES % (MANUAL) 18 % (0-11.0); NEUTROPHILS % (MANUAL) 66 (42-76); PLATELET ESTIMATE ADEQUATE
[2023-12-30] MEDS: AMLODIPINE BESYLATE 5 MG TABLET PO SCH (09:00)
[2023-12-30] MEDS ORDERED: IV NS 0.9% 250 ML IV PRN (15:00)
[2023-12-30 16:00] VITALS: BP 152/87; TEMP 97.7; O2SAT 99
[2023-12-31] VITALS: BP 156/69; TEMP 97.7; O2SAT 98
[2023-12-31 08:00] VITALS: BP 163/69; TEMP 98.1; O2SAT 99
[2023-12-31] MEDS ORDERED: LEVO500T90 PO (09:58)
[2023-12-31 12:00] VITALS: BP 157/63
[2023-12-31 12:14] VITALS: BP 157/63
[2023-12-31] MEDS ORDERED: ENSURE ENLIVE 237 ML LIQUID (VANILLA) PO SCH (17:00)
== END 2023-12-31 14:00 | DRG 853 ==
LOC: ER 16:08 → TELE1 18:24 → MEDSG1 21:06
PROVIDERS: ADMIT Internal Medicine; ATTEND Internal Medicine
PROC: 0T768DZ Dilation of Right Ureter with Intraluminal Device, Via Natural or Artificial Opening Endoscopic (ICD-10-PCS; principal; 2023-12-28)
DX: A41.9 Sepsis, unspecified organism (principal); E43 Unspecified severe protein-calorie malnutrition; G93.41 Metabolic encephalopathy; N17.0 Acute kidney failure with tubular necrosis; N13.6 Pyonephrosis; E87.20 Acidosis, unspecified; Z68.1 Body mass index [BMI] 19.9 or less, adult; I10 Essential (primary) hypertension; K21.9 Gastro-esophageal reflux disease without esophagitis; D64.9 Anemia, unspecified; E78.5 Hyperlipidemia, unspecified; Z88.0 Allergy status to penicillin; Z88.2 Allergy status to sulfonamides; E88.09 Other disorders of plasma-protein metabolism, not elsewhere classified; L60.1 Onycholysis; Z20.822 Contact with and (suspected) exposure to COVID-19; B96.20 Unspecified Escherichia coli [E. coli] as the cause of diseases classified elsewhere; K80.20 Calculus of gallbladder without cholecystitis without obstruction; M19.90 Unspecified osteoarthritis, unspecified site; M89.8X9 Other specified disorders of bone, unspecified site; S90.122A Contusion of left lesser toe(s) without damage to nail, initial encounter; X58.XXXA Exposure to other specified factors, initial encounter; Y93.9 Activity, unspecified; Y92.89 Other specified places as the place of occurrence of the external cause
CPT/HCPCS: 36415; 70450-TC; 71045-TC; 74018; 80048-TC; 80076-TC; 81001; 83605-TC; 83735-TC; 84100-TC; 84484-TC; 85025-TC; 85730-TC; 87040-TC; 87081-TC; 87086-TC; 87186-TC; 94799-TC; 97110-TC; 97112-TC; 97530-TC; 97535-TC; A4216; A4217; A4223; C1769; C2617; G0378; J0690; J1100; J1650; J1956; J2185; J2704; J3010; J3490; J7030; J7050

== ENCOUNTER 2024-03-28 08:39 | Inpatient (IN) | payer BC ==
[~2024-03-28] VITALS: Ht 157.5 cm; Wt 72.6 kg
[~2024-03-28 08:39] MED LIST changes: +ATOR20TA PO; +CHLO4TAB36 PO; +CHOL200059 PO; +DOCU-141 PO; +FAMO-131 PO; +IBUP-23 PO; +LEVO500T90 PO; -MUPI22OI7 MC; -OLME40TA18 PO; +POLY17PO4 PO; -POTA10CA43 PO; +SODI88SP18 BNOSTRILS
[2024-03-28 09:24] LABS: BASOPHILS # (AUTO) 0.1 K/uL (0.0-0.2); BASOPHILS % (AUTO) 0.9 % (0.0-2.0); EOSINOPHILS # (AUTO) 0.1 K/uL (0.0-0.7); EOSINOPHILS % (AUTO) 1.4 % (0.0-6.0); HEMATOCRIT 31 % (33-45); HEMOGLOBIN 10.2 g/dL (11.5-14.8); LYMPHOCYTES # (AUTO) 0.6 K/uL (0.8-4.8); LYMPHOCYTES % (AUTO) 9.6 % (20.0-44.0); MEAN CORPUSCULAR HEMOGLOBIN 28 PG (26.0-33.0); MEAN CORPUSCULAR HGB CONC 33 g/dl (31.0-36.0); MEAN CORPUSCULAR VOLUME 87 fL (82-100); MONOCYTES % (AUTO) 16.6 % (2.0-12.0); NEUTROPHILS # (AUTO) 4.4 K/uL (1.8-8.9); NEUTROPHILS % (AUTO) 71.5 % (43.0-81.0); PLATELET COUNT (AUTO) 251 K/uL (150-450); RED BLOOD CELL COUNT(AUTO) 3.59 MIL/uL (4.0-5.2); RED CELL DISTRIBUTION WIDTH 14.9 % (11.5-15.0); WHITE BLOOD COUNT (AUTO) 6.2 K/uL (4.3-11.0)
[2024-03-28 09:31] LABS: CALCIUM, SERUM 8.8 mg/dL (8.5-10.1); CARBON DIOXIDE 24 mmol/L (21-32); CHLORIDE 110 mmol/L (98-107); CREATININE 1.1 mg/dL (0.6-1.3); GLUCOSE 95 mg/dL (74-106); POTASSIUM 4.3 mmol/L (3.5-5.1); SODIUM SERUM 143 mmol/L (136-145); UREA NITROGEN, BLOOD 30 mg/dL (7-18)
[2024-03-28 09:45] LABS: ALANINE AMINOTRANSFERASE 159 U/L (12-78); ALBUMIN 2.6 g/dL (3.4-5.0); ALKALINE PHOSPHATASE 339 U/L (46-116); ASPARTATE AMINOTRANSFERASE 94 U/L (15-37); BILIRUBIN,DIRECT 0.1 mg/dL (0.0-0.2); BILIRUBIN,TOTAL 0.2 mg/dL (0.2-1.0); NT-PRO BNP 2636 pg/mL (0-125); TOTAL PROTEIN, SERUM 6.5 g/dL (6.4-8.2)
[2024-03-28] MEDS: CEFTRIAXONE 1 G in IV D5W 50 ML IV ONE (10:30)
[2024-03-28] MEDS: FUROSEMIDE 20 MG/2 ML VIAL IV ONE (10:30)
[2024-03-28] MEDS ORDERED: CEFTRIAXONE 1GM BAG (ER ONLY) 50 ML IV ONE (11:20)
[2024-03-28] MEDS ORDERED: FUROSEMIDE 20 MG/2 ML VIAL ONE (11:21)
[2024-03-28] MEDS ORDERED: AMLO10TA4 PO (11:24)
[2024-03-28] MEDS ORDERED: NYST1POW3 TP (11:24)
[2024-03-28] MEDS ORDERED: VITA113O5 TP (11:24)
[2024-03-28] MEDS ORDERED: CARV6.25 PO (11:24)
[2024-03-28] MEDS ORDERED: ZOLPIDEM TARTRATE 5 MG TABLET PO PRN (14:00)
[2024-03-28] MEDS ORDERED: ONDANSETRON HCL/PF 4 MG/2 ML VIAL IVP PRN (14:00)
[2024-03-28] MEDS ORDERED: MAGNESIUM HYDROXIDE 30 ML UDC PO PRN (14:00)
[2024-03-28] MEDS ORDERED: MAG HYDROX/AL HYDROX/SIMETH 30 ML UDC PO PRN (14:00)
[2024-03-28] MEDS ORDERED: ACETAMINOPHEN 325 MG TABLET PO PRN (14:00)
[2024-03-28] MEDS ORDERED: Z GUARD REMEDY 4 OZ OINT TP PRN (14:00)
[2024-03-28] MEDS: AZITHROMYCIN 500 MG in IV D5W 250 ML IV SCH (14:52)
[2024-03-28] MEDS ORDERED: IBUPROFEN 200 MG TABLET PO PRN (15:00)
[2024-03-28] MEDS ORDERED: NYSTATIN TOP POWDER 15 GM BOTTLE TP PRN (15:30)
[2024-03-28 16:00] VITALS: BP 144/70; TEMP 97.3; O2SAT 98
[2024-03-28] MEDS: CARVEDILOL 6.25 MG TABLET PO SCH (17:58)
[2024-03-28] MEDS: DOCUSATE SODIUM 100 MG CAPSULE PO SCH (17:58)
[2024-03-28] MEDS: POLYETHYLENE GLYCOL 3350 17 GM POWD.PACK PO SCH (17:59)
[2024-03-28] MEDS: ENOXAPARIN SODIUM 40 MG/0.4 ML DISP.SYRIN SQ SCH (18:00)
[2024-03-28 20:00] VITALS: BP 129/70; TEMP 98.2; O2SAT 94
[2024-03-29] VITALS (7 sets, daily range): BP systolic 132–150; BP diastolic 60–94; TEMP 97.7–98.6; O2SAT 93–95
[2024-03-29 07:58] LABS: BASOPHILS # (AUTO) 0.1 K/uL (0.0-0.2); EOSINOPHILS # (AUTO) 0.1 K/uL (0.0-0.7); EOSINOPHILS % (AUTO) 2.5 % (0.0-6.0); HEMATOCRIT 32 % (33-45); HEMOGLOBIN 10.5 g/dL (11.5-14.8); LYMPHOCYTES # (AUTO) 0.8 K/uL (0.8-4.8); LYMPHOCYTES % (AUTO) 16.3 % (20.0-44.0); MEAN CORPUSCULAR HEMOGLOBIN 28 PG (26.0-33.0); MEAN CORPUSCULAR HGB CONC 33 g/dl (31.0-36.0); MEAN CORPUSCULAR VOLUME 86 fL (82-100); MONOCYTES % (AUTO) 19.7 % (2.0-12.0); NEUTROPHILS # (AUTO) 3.1 K/uL (1.8-8.9); NEUTROPHILS % (AUTO) 60.5 % (43.0-81.0); PLATELET COUNT (AUTO) 266 K/uL (150-450); RED BLOOD CELL COUNT(AUTO) 3.73 MIL/uL (4.0-5.2); RED CELL DISTRIBUTION WIDTH 14.4 % (11.5-15.0); WHITE BLOOD COUNT (AUTO) 5.2 K/uL (4.3-11.0)
[2024-03-29] MEDS: LORATADINE 10 MG TABLET PO SCH (08:18)
[2024-03-29] MEDS: PANTOPRAZOLE 40 MG TABLET.DR PO SCH (08:18)
[2024-03-29] MEDS: CHOLECALCIFEROL 1,000 UNIT TABLET (VIT D3) PO SCH (08:18)
[2024-03-29] MEDS: AMLODIPINE BESYLATE 10 MG TABLET PO SCH (08:18)
[2024-03-29] MEDS: ATORVASTATIN 10 MG TABLET PO SCH (08:19)
[2024-03-29] MEDS: FUROSEMIDE 40 MG/4 ML VIAL IV SCH (08:19)
[2024-03-29 08:26] LABS: CHOLESTEROL 150 mg/dL (<200); HDL CHOLESTEROL 58 mg/dL (40-60); LDL 76 mg/dL (0-99); TRIGLYCERIDES 62 mg/dL (30-150)
[2024-03-29 08:35] LABS: ALANINE AMINOTRANSFERASE 122 U/L (12-78); ALBUMIN 2.5 g/dL (3.4-5.0); ALKALINE PHOSPHATASE 341 U/L (46-116); ASPARTATE AMINOTRANSFERASE 54 U/L (15-37); BILIRUBIN,DIRECT 0.1 mg/dL (0.0-0.2); BILIRUBIN,TOTAL 0.3 mg/dL (0.2-1.0); CALCIUM, SERUM 8.7 mg/dL (8.5-10.1); CARBON DIOXIDE 26 mmol/L (21-32); CHLORIDE 108 mmol/L (98-107); CREATININE 1.1 mg/dL (0.6-1.3); GLUCOSE 87 mg/dL (74-106); PHOSPHORUS 3.9 mg/dL (2.5-4.9); SODIUM SERUM 143 mmol/L (136-145); TOTAL PROTEIN, SERUM 6.5 g/dL (6.4-8.2); UREA NITROGEN, BLOOD 31 mg/dL (7-18)
[2024-03-29] MEDS ORDERED: CHLORPHENIRAMINE MALEATE 4 MG PO SCH (09:00)
[2024-03-29] MEDS: VALSARTAN 80 MG TABLET PO SCH (09:20)
[2024-03-29] MEDS: CEFTRIAXONE 1 G in IV D5W 50 ML IV SCH (09:20)
[2024-03-29 09:34] LABS: EOSINOPHILS % (MANUAL) 3 % (0-4); LYMPHOCYTES % (MANUAL) 17 % (16-48); MONOCYTES % (MANUAL) 15 % (0-11.0); NEUTROPHILS % (MANUAL) 65 (42-76)
[2024-03-29 09:35] LABS: ANISOCYTOSIS 1+; PLATELET ESTIMATE ADEQUATE
[2024-03-29 10:02] LABS: AMYLASE 69 U/L (25-115); LIPASE 44 U/L (16-77)
[2024-03-29 10:05] LABS: IRON, SERUM 30 ug/dl (50-175); TOTAL IRON BINDING CAPACITY 194 ug/dl (250-450)
[2024-03-29 10:22] LABS: FERRITIN 84 ng/mL (8-388)
[2024-03-30] VITALS: BP 133/66; TEMP 97.9; O2SAT 95
[2024-03-30 04:00] VITALS: BP 155/57; TEMP 97.4; TEMP 97.5; O2SAT 95
[2024-03-30 07:49] LABS: BASOPHILS # (AUTO) 0.1 K/uL (0.0-0.2); BASOPHILS % (AUTO) 1.1 % (0.0-2.0); EOSINOPHILS # (AUTO) 0.2 K/uL (0.0-0.7); EOSINOPHILS % (AUTO) 3.2 % (0.0-6.0); HEMATOCRIT 33 % (33-45); HEMOGLOBIN 11.1 g/dL (11.5-14.8); LYMPHOCYTES # (AUTO) 0.7 K/uL (0.8-4.8); LYMPHOCYTES % (AUTO) 15.7 % (20.0-44.0); MEAN CORPUSCULAR HEMOGLOBIN 29 PG (26.0-33.0); MEAN CORPUSCULAR HGB CONC 34 g/dl (31.0-36.0); MEAN CORPUSCULAR VOLUME 85 fL (82-100); MONOCYTES # (AUTO) 0.7 K/uL (0.1-1.30); MONOCYTES % (AUTO) 14.8 % (2.0-12.0); NEUTROPHILS # (AUTO) 3.1 K/uL (1.8-8.9); NEUTROPHILS % (AUTO) 65.2 % (43.0-81.0); PLATELET COUNT (AUTO) 276 K/uL (150-450); RED BLOOD CELL COUNT(AUTO) 3.87 MIL/uL (4.0-5.2); RED CELL DISTRIBUTION WIDTH 14.6 % (11.5-15.0); WHITE BLOOD COUNT (AUTO) 4.8 K/uL (4.3-11.0)
[2024-03-30 08:00] VITALS: BP 148/68; TEMP 97.6; O2SAT 95
[2024-03-30 08:05] LABS: CALCIUM, SERUM 8.2 mg/dL (8.5-10.1); CARBON DIOXIDE 28 mmol/L (21-32); CHLORIDE 105 mmol/L (98-107); GLUCOSE 88 mg/dL (74-106); MAGNESIUM 2.1 mg/dL (1.8-2.4); PHOSPHORUS 3.9 mg/dL (2.5-4.9); POTASSIUM 3.6 mmol/L (3.5-5.1); SODIUM SERUM 142 mmol/L (136-145); UREA NITROGEN, BLOOD 28 mg/dL (7-18)
[2024-03-30 08:10] LABS: ALBUMIN 2.5 g/dL (3.4-5.0); BILIRUBIN,DIRECT 0.1 mg/dL (0.0-0.2); BILIRUBIN,TOTAL 0.2 mg/dL (0.2-1.0); TOTAL PROTEIN, SERUM 6.5 g/dL (6.4-8.2)
[2024-03-30 08:23] LABS: THYROID STIMULATING HORMONE 0.58 uIU/mL (0.358-3.74)
[2024-03-30 14:00] VITALS: BP 131/58; TEMP 98.4; O2SAT 96
[2024-03-30 16:00] VITALS: BP 131/58; TEMP 98.4; O2SAT 96
[2024-03-30 22:54] VITALS: BP 137/58; TEMP 98.2; O2SAT 94
[2024-03-31] VITALS: BP 138/59; TEMP 98.5; O2SAT 94
[2024-03-31 04:00] VITALS: BP 143/70; TEMP 97.9; O2SAT 93
[2024-03-31 08:00] VITALS: BP 132/53; TEMP 97.5; O2SAT 96
[2024-03-31 08:00] LABS: BASOPHILS # (AUTO) 0.1 K/uL (0.0-0.2); BASOPHILS % (AUTO) 1.1 % (0.0-2.0); EOSINOPHILS # (AUTO) 0.2 K/uL (0.0-0.7); EOSINOPHILS % (AUTO) 3.5 % (0.0-6.0); HEMATOCRIT 36 % (33-45); HEMOGLOBIN 11.5 g/dL (11.5-14.8); LYMPHOCYTES # (AUTO) 0.8 K/uL (0.8-4.8); LYMPHOCYTES % (AUTO) 15.3 % (20.0-44.0); MEAN CORPUSCULAR HEMOGLOBIN 28 PG (26.0-33.0); MEAN CORPUSCULAR HGB CONC 32 g/dl (31.0-36.0); MEAN CORPUSCULAR VOLUME 87 fL (82-100); MONOCYTES # (AUTO) 0.8 K/uL (0.1-1.30); MONOCYTES % (AUTO) 14.4 % (2.0-12.0); NEUTROPHILS # (AUTO) 3.5 K/uL (1.8-8.9); NEUTROPHILS % (AUTO) 65.7 % (43.0-81.0); PLATELET COUNT (AUTO) 276 K/uL (150-450); RED BLOOD CELL COUNT(AUTO) 4.11 MIL/uL (4.0-5.2); RED CELL DISTRIBUTION WIDTH 14.5 % (11.5-15.0); WHITE BLOOD COUNT (AUTO) 5.3 K/uL (4.3-11.0)
[2024-03-31 08:09] LABS: CALCIUM, SERUM 8.9 mg/dL (8.5-10.1); CARBON DIOXIDE 25 mmol/L (21-32); CHLORIDE 106 mmol/L (98-107); GLUCOSE 92 mg/dL (74-106); MAGNESIUM 2.4 mg/dL (1.8-2.4); PHOSPHORUS 3.4 mg/dL (2.5-4.9); POTASSIUM 3.7 mmol/L (3.5-5.1); SODIUM SERUM 141 mmol/L (136-145); UREA NITROGEN, BLOOD 30 mg/dL (7-18)
[2024-03-31 09:01] LABS: ALBUMIN 2.6 g/dL (3.4-5.0); BILIRUBIN,DIRECT 0.1 mg/dL (0.0-0.2); BILIRUBIN,TOTAL 0.2 mg/dL (0.2-1.0); TOTAL PROTEIN, SERUM 6.6 g/dL (6.4-8.2)
[2024-03-31] MEDS ORDERED: IOHEXOL-350 100 ML VIAL IV ONE (10:47)
[2024-03-31] MEDS ORDERED: CT SWABBABLE VALVE TRANS SET 1 EA INFUS.SET MC ONE (10:48)
[2024-03-31] MEDS ORDERED: NITROGLYCERIN 0.4 MG/TAB BOTTLE ONE (10:59)
[2024-03-31] MEDS: NITROGLYCERIN 0.4 MG/TAB BOTTLE SL ONE (11:48)
[2024-03-31 12:00] VITALS: BP 135/64; TEMP 98.4; O2SAT 95
[2024-03-31 16:00] VITALS: BP 135/77; TEMP 97.7; O2SAT 98
[2024-03-31 20:00] VITALS: BP 142/64; TEMP 98.4; O2SAT 96
[2024-04-01 04:00] VITALS: BP 130/56; TEMP 98.2; O2SAT 96
[2024-04-01 06:46] LABS: BASOPHILS # (AUTO) 0.1 K/uL (0.0-0.2); BASOPHILS % (AUTO) 1.2 % (0.0-2.0); EOSINOPHILS # (AUTO) 0.2 K/uL (0.0-0.7); EOSINOPHILS % (AUTO) 4.3 % (0.0-6.0); HEMATOCRIT 32 % (33-45); HEMOGLOBIN 10.6 g/dL (11.5-14.8); LYMPHOCYTES # (AUTO) 0.7 K/uL (0.8-4.8); LYMPHOCYTES % (AUTO) 14.1 % (20.0-44.0); MEAN CORPUSCULAR HEMOGLOBIN 28 PG (26.0-33.0); MEAN CORPUSCULAR HGB CONC 33 g/dl (31.0-36.0); MEAN CORPUSCULAR VOLUME 85 fL (82-100); MONOCYTES # (AUTO) 0.8 K/uL (0.1-1.30); MONOCYTES % (AUTO) 14.9 % (2.0-12.0); NEUTROPHILS # (AUTO) 3.3 K/uL (1.8-8.9); NEUTROPHILS % (AUTO) 65.5 % (43.0-81.0); PLATELET COUNT (AUTO) 282 K/uL (150-450); RED CELL DISTRIBUTION WIDTH 14.2 % (11.5-15.0); WHITE BLOOD COUNT (AUTO) 5.1 K/uL (4.3-11.0)
[2024-04-01 07:20] LABS: CALCIUM, SERUM 8.6 mg/dL (8.5-10.1); CARBON DIOXIDE 25 mmol/L (21-32); CHLORIDE 108 mmol/L (98-107); CREATININE 1.1 mg/dL (0.6-1.3); GLUCOSE 88 mg/dL (74-106); PHOSPHORUS 3.3 mg/dL (2.5-4.9); POTASSIUM 3.5 mmol/L (3.5-5.1); SODIUM SERUM 144 mmol/L (136-145); UREA NITROGEN, BLOOD 24 mg/dL (7-18)
[2024-04-01 07:59] LABS: ALBUMIN 2.4 g/dL (3.4-5.0); BILIRUBIN,DIRECT 0.1 mg/dL (0.0-0.2); BILIRUBIN,TOTAL 0.2 mg/dL (0.2-1.0); TOTAL PROTEIN, SERUM 6.1 g/dL (6.4-8.2)
[2024-04-01 12:11] VITALS: BP 128/64; TEMP 98.4; O2SAT 95
[2024-04-03 16:08] LABS: *SPE A/G RATIO 0.8 (0.7-1.7); *SPE ALBUMIN 3.1 g/dL (2.9-4.4); *SPE ALPHA-1-GLOBULIN 0.4 g/dL (0.0-0.4); *SPE ALPHA-2-GLOBULIN 1.2 g/dL (0.4-1.0); *SPE BETA GLOBULIN 1.3 g/dL (0.7-1.3); *SPE GLOBULIN, TOTAL 3.7 g/dL (2.2-3.9); *SPE M-SPIKE Not Observed g/dL (Not Observed); *SPE PROTEIN TOTAL 6.8 g/dL (6.0-8.5); *SPEGAMMA GLOBULIN 0.8 g/dL (0.4-1.8)
== END 2024-04-01 15:45 | DRG 302 ==
LOC: ER 08:47 → TELE1 11:52 → MEDSG1 03-30 10:27 → TELE1 03-31 08:21 → MEDSG1 03-31 17:21
PROVIDERS: ADMIT Student in an Organized Health Care Education/Training Program; ATTEND Nurse Practitioner Family
DX: I25.10 Atherosclerotic heart disease of native coronary artery without angina pectoris (principal); E43 Unspecified severe protein-calorie malnutrition; N13.2 Hydronephrosis with renal and ureteral calculous obstruction; G93.49 Other encephalopathy; I11.0 Hypertensive heart disease with heart failure; I50.9 Heart failure, unspecified; E88.09 Other disorders of plasma-protein metabolism, not elsewhere classified; D64.9 Anemia, unspecified; G62.9 Polyneuropathy, unspecified; K21.9 Gastro-esophageal reflux disease without esophagitis; K59.00 Constipation, unspecified; Z88.0 Allergy status to penicillin; Z88.2 Allergy status to sulfonamides; R74.01 Elevation of levels of liver transaminase levels; Z87.440 Personal history of urinary (tract) infections; Z68.29 Body mass index [BMI] 29.0-29.9, adult; Z20.822 Contact with and (suspected) exposure to COVID-19; M19.90 Unspecified osteoarthritis, unspecified site; R53.1 Weakness; R79.89 Other specified abnormal findings of blood chemistry
CPT/HCPCS: 36415; 71045-TC; 75574; 76700-TC; 80048-TC; 80061-TC; 80076-TC; 82150-TC; 82728-TC; 83540-TC; 83690-TC; 83735-TC; 83880; 84100-TC; 84155; 84165; 84443-TC; 84484-TC; 85025-TC; 85378-TC; 93307-TC; 93970-TC; 97110-TC; 97112-TC; 97530-TC; 97535-TC; A4223; G0378; J0456; J0696; J1650; J1940; J7050; J7060; Q9967